=== PATIENT | male | born 1980 | race Caucasian/White ===

== ENCOUNTER 2017-07-25 21:57 | Emergency (ER) | payer OTHER ==
[~2017-07-25] VITALS: Ht 172.7 cm; Wt 79.4 kg
[2017-07-25 22:42] VITALS: BP 120/67
--- NOTE | 2017-07-25 23:26 | NUR ---
per local telephone operator admitting, pt left ED
== END 2017-07-25 23:27 | disposition left against medical advice (07) ==
LOC: ER 22:03
DX: Z53.21 Procedure and treatment not carried out due to patient leaving prior to being seen by health care provider (principal)
CPT/HCPCS: A4606; Z7610